=== PATIENT | female | born 1960 | race Caucasian/White ===

== ENCOUNTER 2016-09-16 07:47 | Observation (INO) | payer BC ==
[~2016-09-16] VITALS: Ht 162.6 cm; Wt 92.4 kg
[2016-09-16] VITALS (9 sets, daily range): BP systolic 119–157; BP diastolic 57–81; PULSE 70–91; TEMP 97.3–98.4
[~2016-09-16 07:47] MED LIST: LEVOXYL0.15 MG PO; MICARDIS20 MG PO
[2016-09-16] MEDS ORDERED: MICARDIS80 MG PO (08:43)
[2016-09-16] MEDS ORDERED: LIPITOR 10MG10 MG PO (08:44)
[2016-09-16] MEDS ORDERED: ASPIRIN 81M81 MG/TA2 PO (08:46)
[2016-09-16 08:50] LABS: MEAN CELL VOLUME 93 fl (80.0-100.0); MEAN CORPUSCULAR HGB CONC 32 g/dl (33.0-37.0); MEAN PLATELET VOLUME 10.1 fl (7.4-10.4); PLATELET COUNT 255 K/mm3 (130-400); RED BLOOD COUNT 3.51 M/mm3 (4.10-5.30); REDCELL DISTRIBUTION WIDTH-CV 13.2 % (11.5-14.5); WHITE BLOOD COUNT 8.7 K/mm3 (4.8-10.8)
[2016-09-16 08:51] LABS: HEMATOCRIT 32.6 % (37.0-47.0); HEMOGLOBIN 10.4 g/dl (12.5-16.0); INR 1.1 (0.8-3.0); MEAN CORPUSCULAR HEMOGLOBIN 30 pg (27.0-31.0); PROTHROMBIN TIME 11.8 SECONDS (9.7-12.8)
[2016-09-16 08:55] LABS: CALCIUM 9.8 mg/dL (8.4-10.2); CREATININE, serum 2.55 mg/dL (0.52-1.25)
[2016-09-17 00:48] VITALS: BP 117/48; PULSE 85; TEMP 97.6
[2016-09-17 07:45] VITALS: BP 121/72; PULSE 70; TEMP 97.7
[2016-09-17 08:23] LABS: BASO % 0.4 % (0.0-2.0); EOS # 0.2 (0.0-0.7); EOS % 2.3 % (0-4.0); GRAN % 59.5 % (42.2-75.2); LYMPH # 2.6 (1.2-3.4); LYMPH % 31.4 % (20.0-51.0); MEAN CELL VOLUME 94 fl (80.0-100.0); MEAN CORPUSCULAR HGB CONC 32 g/dl (33.0-37.0); MEAN PLATELET VOLUME 10.4 fl (7.4-10.4); MONO # 0.5 (0.1-0.6); MONO % 6.3 % (1.7-9.3); PLATELET COUNT 239 K/mm3 (130-400); RED BLOOD COUNT 3.38 M/mm3 (4.10-5.30); REDCELL DISTRIBUTION WIDTH-CV 13.2 % (11.5-14.5); WHITE BLOOD COUNT 8.4 K/mm3 (4.8-10.8)
[2016-09-17 08:35] LABS: HEMATOCRIT 31.6 % (37.0-47.0); MEAN CORPUSCULAR HEMOGLOBIN 30 pg (27.0-31.0)
[2016-09-17 08:53] LABS: CALCIUM 9.1 mg/dL (8.4-10.2); CREATININE, serum 2.04 mg/dL (0.52-1.25); POTASSIUM 4.7 mmol/L (3.4-5.0)
[2016-09-17] MEDS ORDERED: NORVASC 10MG10 MG PO (12:28)
== END 2016-09-17 13:12 | disposition home or self-care (01) ==
LOC: COL.RAD 07:47 → MEDICAL 14:00
PROVIDERS: Internal Medicine Cardiovascular Disease
DX: I20.0 Unstable angina (principal); I10 Essential (primary) hypertension; R94.39 Abnormal result of other cardiovascular function study; N28.9 Disorder of kidney and ureter, unspecified; R68.84 Jaw pain; E78.5 Hyperlipidemia, unspecified
CPT/HCPCS: A9270-GY; C1769; C1887; C1894; G0378; G0379; J1644; J2250; J3010; Q9967